=== PATIENT | male | born 1945 | race Caucasian/White ===

== ENCOUNTER 2018-01-16 02:01 | Inpatient (IN) | payer OTHER, MEDICARE ==
[~2018-01-16] VITALS: Ht 172.7 cm; Wt 79.4 kg
[~2018-01-16 02:01] MED LIST: METHADONE10 MG/1 M2 PO
--- NOTE | 2018-01-16 13:22 | Admission Core Measures ---
Acute Coronary Syndrome (CM) ACS Core Measures Acute Coronary Syndrome Diagnosis No Congestive Heart Failure (NEW) CHF Core Measures Congestive Heart Failure Diagnosis No Cerebrovascular Accident (NEW) CVA Core Measures CVA/TIA Diagnosis No Venous Thromboembolism VTE Core Vinicio (View Protocol) VTE Risk Factors Surgery No Mechanical VTE Prophylaxis d/t N/A MechProphylax Ordered No VTE Pharm Prophylaxis d/t NA PharmProphylax ordered Problem List As ranked by this Provider includes Assessment & Plan 1. Unilateral primary osteoarthritis, left hip HOME MEDS Home Med List Methadone HCl 10 MG/ML ORAL.CONC 80 MG PO QAM CHRONIC PAIN (Reported)
[2018-01-16] MEDS ORDERED: COLACE100 M1 PO (13:24)
[2018-01-16] MEDS ORDERED: PRILOSEC OTC20 M1 PO (13:24)
[2018-01-16] MEDS ORDERED: MS CONTIN30 M1 PO (13:24)
[2018-01-16] MEDS ORDERED: ASPIRIN EC325 M2 PO (13:24)
[2018-01-16] MEDS ORDERED: DILAUDID4 M1 PO (13:24)
[2018-01-16] MEDS ORDERED: MIRALAX17 G1 PO (13:24)
--- NOTE | 2018-01-16 13:27 | Patient Discharge Instructions ---
Discharge Instructions General Discharge Information You were seen/treated for: Left hip pain related to unilateral primary osteoarthritis You had these procedures: Left total hip replacement Watch for these problems: Increasing pain despite the use of pain medication Increasing redness, warmth or swelling Drainage of any type from incision Inability to bear weight on operative leg Persistent nausea and vomiting Fever greater than 101.5 degrees Do not soak the wound: Yes No bath, but you may shower: Yes Other wound care: Please keep wound clean and dry. No ointments or lotions of any type on or near incision at any time. No exceptions. Your dressing will be changed by your nurse on the second day after your surgery. Daily dry dressing changes are recommended each day thereafter. Do not soak your wound in a bath at any time until otherwise indicated by your surgeon. You may shower, please dry wound immediately after shower with a clean towel. Special Instructions: Aspirin: You are taking this medication to help prevent blood clot formation. Please take with food to protect your stomach lining. Please take as directed. Constipation: Pain medication can cause constipation. Dr. Escalera has recommended that you take Colace and miralax each day. You may discontinue this medication if you develop loose stool or diarrhea. If you wish to continue this medication, it is available over the counter. If you are unable to move your bowels after several days, if you are unable to pass gas and are developing bloating, nausea, or vomiting as a result, please contact your doctor. Diet Continue normal diet: Yes Recommended Diet: Regular Activity Full Activity/No Limits: No Activity Self Limited: Yes Acute Coronary Syndrome Inclusion Criteria At DC or during hospital stay patient has or had the following: ACS DIAGNOSIS No Discharge Core Measures Meds if any: Prescribed or Continued at Discharge Meds if any: NOT Prescribed or Continued at Discharge Congestive Heart Failure Inclusion Criteria At DC or during hospital stay patient has or had the following: CHF DIAGNOSIS No Discharge Core Measures Meds if any: Prescribed or Continued at Discharge Meds if any: NOT Prescribed or Continued at Discharge Cerebrovascular accident Inclusion Criteria At DC or during hospital stay patient has or had the following: CVA/TIA Diagnosis No Discharge Core Measures Meds if any: Prescribed or Continued at Discharge Meds if any: NOT Prescribed or Continued at Discharge Venous thromboembolism Inclusion Criteria VTE Diagnosis No VTE Type NONE VTE Confirmed by (Test) NONE Discharge Core Measures - Per Current guidelines, there needs to be overlap - treatment for the first 5 days of Warfarin therapy. - If discharged on Warfarin prior to 5 days of - overlap therapy, the patient will need to be - assessed for post discharge needs including - *Post discharge parental anticoagulation - *Warfarin and/or parental anticoagulation education - *Follow up date to check INR post discharge At least 5 days overlap therapy as Inpatient No Meds if any: Prescribed or Continued at Discharge Note: Overlap Therapy is Warfarin and Anticoagulant Meds if any: NOT Prescribed or Continued at Discharge
--- NOTE | 2018-01-16 13:30 | Surgical Discharge Summary ---
Visit Information Visit Dates Admission Date: 01/16/18 Discharge Date: 01/17/18 History of Present Illness Chief Complaint: Left hip pain related to unilateral primary osteoarthritis Medical History Isolation History: Standard Surgical History Pertinent Surgical History: non-contributory Review of Systems: See H&P Hospital Course Course Attending Physician: Faheem Escalera MD Primary Care Physician: Shailesh Bell MD Hospital Course: Patient was admitted to the hospital for an elective total joint replacement. The procedure was tolerated well and patient was transferred to a general surgical floor. Diet was advanced and tolerated, and the patient voided spontaneously. The patient was evaluated and treated by physical therapy. At the time of hospital discharge, the vital signs were stable, neurovascular status was intact, and pain was controlled with the use of oral pain medications. Allergies: Coded Allergies: No Known Allergies (01/13/18) Disposition Summary Disposition Principal Diagnosis: Left hip unilateral primary osteoarthritis Additional Diagnosis: None Discharge Disposition: home health services Discharge Instructions General Discharge Information Code Status: Full Code Patient's Diet: Regular, advance as tolerated Patient's Activity: WBAT Follow-Up Instructions/Appts: Follow up with Dr. Escalera in 6 weeks from date of surgery. Please call his office to arrange and/or confirm this appointment. Medications at Discharge Discharge Medications: Continue taking these medications: Methadone HCl (Methadone HCl) 10 MG/ML ORAL.CONC 80 Milligram ORAL Every Morning Comments: Last Taken: 01/17/18 Time: 0600 AM Start taking the following new medications: Aspirin (Ecotrin*) 325 MG TABLET.DR 1 Tablet ORAL TWICE DAILY Qty = 60 No Refills Comments: Last Taken: 01/17/18 Time: 1000 AM Docusate Sodium (Colace) 100 MG CAPSULE 1 Capsule ORAL TWICE DAILY Qty = 14 No Refills Instructions: DISCONTINUE USE IF YOU DEVELOP LOOSE STOOL OR DIARRHEA Comments: Last Taken: 01/17/18 Time: 1000 AM Polyethylene Glycol 3350 (Miralax) 17 GRAM POWD.PACK 1 Packet ORAL DAILY Qty = 7 No Refills Instructions: dissolve in water, DISCONTINUE USE IF YOU DEVELOP LOOSE STOOL OR DIARRHEA Comments: NOT GIVEN IN HOSPITAL Omeprazole Magnesium (Prilosec Otc) 20 MG TABLET.DR 1 Tablet ORAL DAILY Qty = 30 No Refills Comments: Last Taken: 01/17/18 Time: 0600 AM Hydromorphone HCl (Dilaudid) 2 MG TABLET 1-2 Tablet ORAL EVERY 4-6 HOURS NEEDED as needed for PAIN Qty = 36 No Refills Comments: NOT GIVEN IN HOSPITAL
--- NOTE | 2018-01-16 14:31 | RADIOLOGY REPORT ---
EXAMINATION: XR HIP, LEFT CLINICAL INFORMATION: Status post left total hip replacement. COMPARISON: None TECHNIQUE: Portable AP and crosstable lateral views of the left hip are obtained. FINDINGS: The total hip arthroplasty hardware with at least 4 acetabular fixation screws and a cerclage wire around the prosthesis in the intertrochanteric region are noted. There is satisfactory positioning of the surgical hardware. No definite associated fracture is seen. Expected postsurgical changes of soft tissue edema and soft tissue air are noted. IMPRESSION: Expected postsurgical changes of left total hip arthroplasty with satisfactory positioning of the hardware. No definite associated fracture.
--- NOTE | 2018-01-16 14:36 | PN- Orthopedic ---
Subjective Subjective: POST-OP CHECK IN PACU PT SLEEPING IN BED. DENIES PAIN. LOWER EXT ARE STILL NUMB SPINAL HAS NOT WORN OFF YET. DENIES N/V. DENIES CP/SOB. Objective Vital Signs and I&Os GEN-NAD RESP- CLEAR ABD-ND, NT EXT- LEFT HIP SOFT, NONTENDER. DRESSING CLEAN AND DRY. 1+PT PULSES BILATERALLY Assessment/Plan Assessment/Plan 72YO M SP LEFT LUH POD0 PAIN MANAGEMENT- PAIN MAY BE AN ISSUE PT GETS 80MG METHADONE AT HOME. [place] , MS CONTIN AND PO DILAUDID PRN WILL BE ADDED DVT PPX- [id number] BID REGULAR HOME MEDS REG DIET PHYSICAL THERAPY- WBAT Core Measures Venous Thromboembolism VTE Risk Factors Surgery No Mechanical VTE Prophylaxis d/t N/A MechProphylax Ordered No VTE Pharm Prophylaxis d/t NA PharmProphylax ordered
--- NOTE | 2018-01-16 16:24 | Operative Report ---
Operative/Inv Procedure Report Surgery Date: 01/16/18 Name of Procedure: Left total hip replacement Pre-Operative Diagnosis: Primary left hip DJD Post-Operative Diagnosis: Same Estimated Blood Loss: 400 Surgeon/Installer Inspector Final: Jw CUEVA,Faheem Boyce Anesthesia: block Operative/Procedure Note Note: Description of Procedure: The patient was taken to the operating room and positively identified. After induction of spinal anesthesia and administration of appropriate pre-operative antibiotics, the patient was positioned supine on the operating room table and all bony prominences were well padded. After performing a surgical timeout, the left lower extremity was prepped and draped in the usual sterile fashion. A direct anterior approach was made to the left hip. The incision was carried sharply through superficial soft tissues to the level of the fascia. Meticulous hemostasis was maintained with Bovie electocautery. The fascia over the tensor fascia marcelle muscle was opened sharply and the interval between the TFL and the sartorius was entered bluntly taking care to stay lateral to the lateral femoral cutaneous nerve. Retractors were placed around the femoral neck and the pericapsular fat was identified. The ascending branches of the lateral femoral circumflex vessels were identified and carefully coagulated. The pericapsular fat and anterior capsule were then resected. A napkin ring osteotomy was performed and the femoral head was removed without difficulty. Attention was then turned to the acetabulum. After appropriate placement of retractors, the acetabulum was exposed. Soft tissue was cleaned from the acetabular margin and notch. Overhanging osteophytes were removed and the teardrop was exposed. The acetabulum was then sequentially reamed to accept a 62 mm [place] Trident Tritanium hemispherical shell. This was impacted into place in the appropriate position and multiple screws were used for supplemental fixation. It was then fit with a 36 mm Trident X3 zero degree polyethylene insert. Attention was then turned to the femur. After performing the appropriate ligament releases, the proximal femur was exposed. It was then sequentially broached to accept a size 7 Thom Accolade 2 stem. A prophylactic Dall-Miles cable was placed proximal to the lesser trochanter. This was trialed for leg length and stability. The trial component was removed and the final component was impacted into place. The trunnion was carefully cleaned and fit with a 36 mm, +0 Biolox delta ceramic femoral head. The hip was reduced and put through a full range of motion and found to be stable. The articular space was then irrigated with sterile saline. The periarticular soft tissues were infilitrated with Marcaine. The fascial layer was closed with interrupted #1 vicryl suture and the skin was re-approximated with interrupted 2 -0 vicryl. The skin was closed with a running 3-0 V-Lock suture. Steri-strips and a sterile dressing were applied. The patient was awakened and taken to the recovery room in satisfactory condition.
[2018-01-16 17:46] VITALS: BP 110/68
[2018-01-16 20:04] VITALS: BP 110/58
[2018-01-16 22:45] VITALS: BP 106/62
[2018-01-17 01:49] VITALS: BP 118/62
[2018-01-17 06:20] VITALS: BP 122/72
[2018-01-17 08:24] LABS: ABSOLUTE BASOPHIL COUNT 0 /CUMM (0.0-0.2); ABSOLUTE EOSINOPHIL COUNT 0.1 /CUMM (0.0-0.7); ABSOLUTE GRANULOCYTE CT 10.2 /CUMM (1.4-6.5); ABSOLUTE LYMPH COUNT 1.4 /CUMM (1.2-3.4); ABSOLUTE MONOCYTE COUNT 1.2 /CUMM (0.10-0.60); BASOPHIL % 0.2 % (0.0-2.0); EOSINOPHIL % 0.6 % (0-5); GRANULOCYTE % 79.1 % (42.2-75.2); HEMATOCRIT 36.6 % (42-52); MEAN CORPUSCULAR HGB 31.4 PG (27.0-31.0); MEAN CORPUSCULAR HGB CONC 33.8 G/DL (33.0-37.0); MEAN CORPUSCULAR VOLUME 92.9 FL (80.0-94.0); MEAN PLATELET VOLUME 8.2 FL (7.4-10.4); PLATELET COUNT 174 /CUMM (130-400); RBC DISTRIBUTION WIDTH 13.8 % (11.5-14.5); RED BLOOD CELL CT 3.94 /CUMM (4.70-6.10); WHITE BLOOD CELL COUNT 12.9 /CUMM (4.8-10.8)
[2018-01-17] MEDS ORDERED: DILAUDID2 M1 PO (09:47)
--- NOTE | 2018-01-17 09:55 | PN- Orthopedic ---
Subjective Subjective: No complaints of pain presently. Has voided spontaneously. Is tolerating diet. Has been oob. Ambulated with PT. Cleared stairs. Anticipates discharge to home today. Objective Vital Signs and I&Os Vital Signs Date Time Temp Pulse Resp B/P B/P Pulse O2 O2 Flow FiO2 Mean Ox Delivery Rate 01/17 08 Room Air 01/17 0620 97.9 75 20 122/72 96 Room Air 01/17 0149 98.0 85 20 118/62 92 Room Air 01/16 2314 97.9 73 16 95 Room Air 01/16 2245 106/62 01/16 2004 98.6 73 18 110/58 94 Room Air 01/16 1746 98.8 96 20 110/68 97 Room Air Intake & Output 01/17 1600 01/17 0801/17 0000 01/16 1600 01/16 0801/16 0000 Intake Total 600 Output Total Balance 600 Intake, IV 600 Patient 175 lb Weight Weight Bed scale Measurement Method Physical Exam: General: Alert and oriented x3, no acute distress Cardiac: RRR, s1s2 Pulm: C T A bialterally Abd: No-tender, non-distended Extremities: MOves all extremities, distal sensation intact. Skin warm and well perfused. Thigh compartment soft. Bilateral calves soft and non-tender Assessment/Plan Assessment/Plan This is a 72 year old male, POD 1, s/p L THR, pmh signficant for chronic pain, on methadone -Continue home dose of methadone -Dilaudid as needed -OOB, WBAT -ASA 325 bid for dvt ppx -Continue diet as tolerated, dc am labs -DC to home today with [facility] WIll discuss with Dr. Escalera Core Measures Venous Thromboembolism VTE Risk Factors Surgery No Mechanical VTE Prophylaxis d/t N/A MechProphylax Ordered No VTE Pharm Prophylaxis d/t NA PharmProphylax ordered
== END 2018-01-17 14:09 | disposition home health service (06) | DRG 470 ==
LOC: SDA 02:01 → 2NB 02:01 → SDA 07:00 → ENRESERV 16:16 → ENTRNSPT 17:23 → EDTRNSPTSTS 17:44 → EDTRNSPT 17:44 → 2NB 17:45 → CMPTRNSPT 17:54 → ENPENDDIS 01-17 10:01 → ENTRNSPT 01-17 13:56 → EDTRNSPTSTS 01-17 14:04 → EDTRNSPT 01-17 14:04 → 2NB 01-17 14:09 → CMPTRNSPT 01-17 14:37
PROVIDERS: Nurse Practitioner
PROC: 0SRB04A Replacement of Left Hip Joint with Ceramic on Polyethylene Synthetic Substitute, Uncemented, Open Approach (ICD-10-PCS; principal; 2018-01-16)
DX: M16.12 Unilateral primary osteoarthritis, left hip (principal); G89.29 Other chronic pain; Z79.891 Long term (current) use of opiate analgesic
CPT/HCPCS: 2NBP; 36592; 73502-LT; 82436; 97110-GO; 97116-GO; 97161-GP; J0131; J0690; J0735; J2550; J3490; J7042